=== PATIENT | female | born 1965 | race Caucasian/White ===

== ENCOUNTER → 2019-02-06 | Outpatient (CLI) | payer OTHER ==
[~2019-02-06] MED LIST: ADDERALL 30 MG30 MG PO; APAP/CODEINE ELI5 M1 OR; AVELOX 400 MG400 MG PO; AVELOX400 MG PO; BENZONATATE100 MG PO; CELEXA 20 MG TA20 M1 PO; IRON325 PO; MUCINEX TA600 MG/TA1 PO; PERCOCET 5-3251 EACH PO; PROTONIX40 M2 PO; VITAMINC500 PO
== END ==
LOC: CAT 08:48
DX: Z13.6 Encounter for screening for cardiovascular disorders (principal); E78.00 Pure hypercholesterolemia, unspecified; I25.10 Atherosclerotic heart disease of native coronary artery without angina pectoris